=== PATIENT | male | born 1965 | race Caucasian/White ===

== ENCOUNTER 2017-10-08 18:03 | Emergency (ER) | payer SELFPAY ==
[~2017-10-08] VITALS: Ht 180.3 cm; Wt 91.0 kg
[2017-10-09] MEDS ORDERED: IBUPROFEN 600MG TABLET PO NR
[2017-10-09 00:08] LABS: CHLORIDE 108 mEq/L (98-107)
[2017-10-09 00:13] LABS: BASOPHILS % 0.8 % (0.0-2.0); EOSINOPHILS % 1.8 % (0.0-5.0); HEMATOCRIT. 38.8 % (42.0-52.0); HEMOGLOBIN. 13.7 g/dL (14.0-18.0); LYMPHOCYTES % 18.3 % (20.0-50.0); MEAN CORPUSCULAR HEMOGLOBIN 28.7 pg (28.0-32.0); MEAN CORPUSCULAR VOLUME 81.2 fL (80.0-94.0); MEAN PLATELET VOLUME 6.9 fl (7.4-10.4); MONOCYTES % 7.7 % (2.0-8.0); NEUTROPHILS % 71.4 % (40.0-76.0); PLATELET 263 x1000/uL (130-400); RED BLOOD CELL COUNT 4.79 mill/uL (4.7-6.1); RED CELL DISTRIBUTION WIDTH 13.3 % (11.6-14.6)
[2017-10-09 01:57] VITALS: BP 136/96
== END 2017-10-09 02:01 | disposition home or self-care (01) ==
LOC: ER 18:03
DX: L03.115 Cellulitis of right lower limb (principal); R53.1 Weakness; I10 Essential (primary) hypertension
CPT/HCPCS: 36415; 80053; 85025; 93005; 99285; Z7610